=== PATIENT | female | born 1985 | race Caucasian/White ===

== ENCOUNTER 2016-12-27 23:50 | Emergency (ER) | payer MEDICAID, OTHER ==
[2016-12-28 00:19] VITALS: RESP 16; O2SAT 97
[2016-12-28] MEDS ORDERED: LORazepam 1 MG TAB PO ONE (01:30)
[2016-12-28] MEDS ORDERED: LORazepam 1 MG TAB ONE (01:41)
[2016-12-28] MEDS ORDERED: AZITHROMYCIN 250 MG TAB PO ONE (01:52)
[2016-12-28] MEDS ORDERED: ONDANSETRON DISINTEGRATING 4 MG TAB PO ONE (01:52)
[2016-12-28] MEDS ORDERED: ULIPRISTAL ACETATE 30 MG TAB PO ONE (01:52)
[2016-12-28] MEDS ORDERED: metroNIDAZOLE 500 MG TAB PO ONE (05:32)
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
[2016-12-28] MEDS ORDERED: LORAZEPAM 1 MG PREPACK#4 BTL TAKEHOME ONE (05:33)
[2016-12-28 05:51] VITALS: BP 122/72; PULSE 80; TEMP 98.1
== END 2016-12-28 05:51 | disposition home or self-care (01) ==
LOC: EEVIPCON 23:50
DX: T74.21XA Adult sexual abuse, confirmed, initial encounter (principal); N76.0 Acute vaginitis; F17.200 Nicotine dependence, unspecified, uncomplicated

== ENCOUNTER 2017-09-11 13:36 | Emergency (ER) | payer MEDICAID ==
[2017-09-11 13:45] VITALS: TEMP 98.4
--- NOTE | 2017-09-11 14:40 | EDPHY ---
H & P Stated Complaint: cough Time Seen by Provider: 09/11/17 14:06 HPI/ROS: Chief Complaint: Cough, coughing blood HPI: 32-year-old female's been having intermittent upper respiratory symptoms since May. For the last several months she has been planning a local festival is been getting very little sleep. She has had waxing waning cough with pretty persistent sore throat, nasal congestion, occasional laryngitis. This morning she cough that she had some blood immediately after waking up. Patient does admit that she had a nosebleed last night. No fevers or chills. She has seen her primary care physician and was given an MDI and cough medications. She has not been on any antibiotics. No recent travel. Has never been incarcerated. No risk factors for TB. She does smoke. ROS: 10 point Review of Systems is negative except as noted in the HPI. PMH: None Social History: Positive smoking, no alcohol, no recreational drug use Family History: non-contributory Physical Exam: Gen: Awake, Alert, No Distress HEENT: Nose: Mild dry clot of bilateral septum Eyes: PERRLA, EOMI Mouth: Moist mucosa Neck: Supple, no JVD Chest: nontender, lungs clear to auscultation Heart: S1, S2 normal, no murmur Abd: Soft, non-tender, no guarding Back: no CVA tenderness, no midline tenderness Ext: no edema, non-tender Skin: no rash Neuro: CN II-XII intact, Sensation grossly intact, Strength 5/5 in bilateral upper and lower extremities - Personal History LMP (Females 10-55): Now Current Tetanus/Diphtheria Vaccine: Unsure Current Tetanus Diphtheria and Acellular Pertussis (TDAP): Unsure - Medical/Surgical History Hx Asthma: No Hx Chronic Respiratory Disease: No Hx Diabetes: No Hx Cardiac Disease: No Hx Renal Disease: No Hx Cirrhosis: No Hx Alcoholism: No Hx HIV/AIDS: No Hx Splenectomy or Spleen Trauma: No Other PMH: none - Social History Smoking Status: Current some day smoker Constitutional: Initial Vital Signs Temperature (C) 36.9 C 09/11/17 13:43 Heart Rate 116 H 09/11/17 13:43 Respiratory Rate 24 H 09/11/17 13:43 Blood Pressure 142/121 H 09/11/17 13:43 O2 Sat (%) 97 09/11/17 13:43 O2 Delivery Mode Room Air Allergies/Adverse Reactions: No Known Allergies Allergy (Unverified 09/11/17 13:41) Home Medications: Medication Instructions Recorded Albuterol 09/11/17 Albuterol [Proventil Inhaler HFA 1 - 2 puffs IH Q4H PRN #1 mdi 09/11/17 (*)] Tessalon Pearles 09/11/17 Wellbutrin Sr 09/11/17 Medical Decision Making - Diagnostics Imaging Results: Imaging Impressions Chest X-Ray 09/11/17 13:58 Impression: Normal chest. Imaging: I viewed and interpreted images myself ED Course/Re-evaluation: Chest x-ray is negative. Patient's symptoms likely secondary to viral upper respiratory infection bronchitis. The patient the has been getting in adequate rest recently and in adequate hydration. Her coughing of blood is secondary to epistaxis. She has not have any risk factors for TB. She is afebrile. She is oxygenating well. Will discharge with follow-up as an outpatient, return for any concerns. The patient has been reassured. Departure - Departure Disposition: Home, Routine, Self-Care Clinical Impression: Viral upper respiratory illness, Epistaxis Condition: Good Instructions: Nosebleed (ED), Upper Respiratory Infection (ED) Additional Instructions: Follow up with primary care physician in 3-4 days for further evaluation. Alternate acetaminophen (1000 mg) with ibuprofen (400 mg) every 4 hours as needed for fevers, chills, aches or pain. Return to the emergency department for worsening shortness of breath, cough, chest pain, or any other concerns. Referrals: Jimena Presley MD [Doctor of Osteopathy] - As per Instructions Prescriptions: Albuterol [Proventil Inhaler HFA (*)] 1 - 2 puffs IH Q4H PRN #1 mdi PRN Reason: Wheezing
[2017-09-11 15:38] VITALS: BP 162/108; PULSE 91; RESP 20; O2SAT 93
--- NOTE | 2017-09-11 17:10 | ASMTCMCOM ---
CM Note CM Note Notes: Pt requested assistance with getting a follow-up appt at [facility] where she is an open patient with their services. This CM called [facility] ([phone]) and left two voicemails with pt's contact #s ([phone], ) and requesting that PC reach out to patient and schedule a follow-up appt for her this week or early next week. ED RN Viri relayed to patient that she should expect a call from [facility] in the next day or two. Pt also recommended to call PC if she hasn't heard from them. CM available for further assistance if needed. Date Signed: 09/11/2017 05:09 PM Electronically Signed By:Jana Coleman RN
--- NOTE | 2017-09-11 17:11 | ASDISCHSUM ---
Discharge Information Plan Status:Home with No Needs Medically Cleared to Leave: Discharge Date:09/11/2017 03:38 PM CM D/C Disposition:Home, Routine, Self-Care ADT D/C Disposition:Home, Routine, Self-Care Projected Discharge Date:09/11/2017 03:38 PM Transportation at D/C:None or Unknown Discharge Delay Reason: Follow-Up Date:09/11/2017 03:38 PM Discharge Slot: Final Diagnosis: Placement Information Patient Contact Information Contact Name:MADDI Relationship:Mother Address:[address] [facility] [facility] [address] City:[place] Alternate Phone: [facility]/Zip Code:[place] [address] Email: Financial Information Financial Class:Medicaid Primary Plan Desc:[employer] HE[employer] Primary Plan Number:[id number] Secondary Plan Desc: Secondary Plan Number: Assessment Information [facility] CM Progress Note CM Note CM Note Notes: Pt requested assistance with getting a follow-up appt at [facility] where she is an open patient with their services. This CM called [facility] ([phone]) and left two voicemails with pt's contact #s ([phone], ) and requesting that PC reach out to patient and schedule a follow-up appt for her this week or early next week. ED ARTHUR Meredith relayed to patient that she should expect a call from [facility] in the next day or two. Pt also recommended to call PC if she hasn't heard from them. CM available for further assistance if needed. Date Signed: 09/11/2017 05:09 PM Electronically Signed By:Jana Coleman RN Intervention Information
== END 2017-09-11 15:38 | disposition home or self-care (01) ==
DX: J06.9 Acute upper respiratory infection, unspecified (principal); R04.0 Epistaxis; F17.200 Nicotine dependence, unspecified, uncomplicated

== ENCOUNTER 2018-01-17 23:57 | Emergency (ER) | payer MEDICAID ==
[2018-01-18 00:09] VITALS: BP 151/80
--- NOTE | 2018-01-18 00:13 | EDPHY ---
H & P Stated Complaint: area of redness/swelling to sacrum x 3 days Time Seen by Provider: 01/18/18 00:13 HPI/ROS: HPI CHIEF COMPLAINT: Cyst on tailbone. HISTORY OF PRESENT ILLNESS: Very pleasant 32-year-old female, she presents emergency room with area pain at the superior aspect of her gluteal fold. She states she had the same exact thing happened about 3 months ago and went away on its own. She states for the past day she has had increasing pain. No fever. She is concerned that it may be a abscess or infection. She presents emergency room stating that it hurts her. Past Medical History: Denies medical history Past Surgical History: Denies surgical history Social History: Denies drugs alcohol tobacco. Family History: Noncontributory ROS REVIEW OF SYSTEMS: A comprehensive 10 point review of systems is otherwise negative aside from elements mentioned in the history of present illness. Exam Constitutional triage nursing summary reviewed, vital signs reviewed, awake/ alert. Eyes normal conjunctivae and sclera, EOMI, PERRLA. HENT normal inspection, atraumatic, moist mucus membranes, no epistaxis, neck supple/ no meningismus, no raccoon eyes. Respiratory clear to auscultation bilaterally, normal breath sounds, no respiratory distress, no wheezing. Cardiovascular rate normal, regular rhythm, no murmur, no edema, distal pulses normal. Gastrointestinal soft, non-tender, no rebound, no guarding, normal bowel sounds, no distension, no pulsatile mass. Genitourinary no CVA tenderness. Musculoskeletal no midline vertebral tenderness, full range of motion, no calf swelling, no tenderness of extremities, no meningismus, good pulses, neurovascularly intact. Top of Gluteal Fold: Redness, warmth, induration no significant fluctuance. No palpable abscess. Appears to most likely be a pilonidal cyst versus cellulitis. Skin pink, warm, & dry, no rash, skin atraumatic. Neurologic awake, alert and oriented x 3, AAOx3, moves all 4 extremities equally, motor intact, sensory intact, CN II-XII intact, normal cerebellar, normal vision, normal speech. Psychiatric normal mood/affect. Heme/Lymph/Immune no lymphadenopathy. Differential Diagnosis: Includes but is not limited to in a particular order cellulitis, pilonidal cyst, abscess Medical Decision Making: Plan for this patient will perform a bedside ultrasound to see if there is a deep pus pocket that needs to be drained. Recommend warm compresses of warm soaks 2 to 3 times a day, recommend anti- inflammatory pain medicine, addition will place on Keflex. I do recommend she has close follow-up with surgery all for her to General surgery for follow-up as this may be a pilonidal cyst in it may get worse and may need surgical drainage or excision. Discussed this at detail in length with her. Patient understands warm compresses, antibiotics, follow up with surgery. Additionally return emergency room if there is worsening symptoms Bedside ultrasound was performed and I did not see an area of pus or pocket that needs to be drained at this time appears to be area of cellulitis inflammation at the superior gluteal fold. Source: Patient - Personal History LMP (Females 10-55): Now Current Tetanus/Diphtheria Vaccine: Yes Current Tetanus Diphtheria and Acellular Pertussis (TDAP): Yes - Medical/Surgical History Hx Asthma: No Hx Chronic Respiratory Disease: No Hx Diabetes: No Hx Cardiac Disease: No Hx Renal Disease: No Hx Cirrhosis: No Hx Alcoholism: No Hx HIV/AIDS: No Hx Splenectomy or Spleen Trauma: No Other PMH: none - Social History Smoking Status: Current every day smoker Constitutional: Initial Vital Signs Temperature (C) 36.6 C 01/18/18 00:02 Heart Rate 90 01/18/18 00:02 Respiratory Rate 16 01/18/18 00:02 Blood Pressure 151/80 H 01/18/18 00:02 O2 Sat (%) 96 01/18/18 00:02 O2 Delivery Mode Room Air Allergies/Adverse Reactions: No Known Allergies Allergy (Verified 01/18/18 00:01) Home Medications: Medication Instructions Recorded Wellbutrin Sr 09/11/17 Cephalexin [Keflex] 500 mg PO Q6H #28 cap 01/18/18 Ibuprofen [Motrin (*)] 800 mg PO Q6-8PRN #30 tab 01/18/18 Departure - Departure Disposition: Home, Routine, Self-Care Clinical Impression: Pilonidal cyst Condition: Good Instructions: Pilonidal Cyst (ED) Additional Instructions: 1. Warm compresses and warm soaks 2 to 3 times a day. 2. Antibiotics as prescribed 3. Follow up with surgery. 4. Return emergency room if there is worsening symptoms questions or concerns. Referrals: Meli Sandhu NP [Primary Care Provider] - As per Instructions Aleksandr Torre MD [Medical Doctor] - As per Instructions Prescriptions: Cephalexin [Keflex] 500 mg PO Q6H #28 cap Ibuprofen [Motrin (*)] 800 mg PO Q6-8PRN #30 tab
[2018-01-18] MEDS ORDERED: CEPHALEXIN 500MG PREPACK#4 BTL TAKEHOME ONE (00:31)
[2018-01-18] MEDS ORDERED: CEPHALEXIN 500 MG CAP PO ONE (00:31)
[2018-01-18] MEDS ORDERED: IBUPROFEN 800 MG TAB PO ONE (00:31)
[2018-01-18] MEDS ORDERED: HYDROCOD/APAP 5/325 PREPACK#6 BTL TAKEHOME ONE (00:35)
== END 2018-01-18 00:45 | disposition home or self-care (01) ==
DX: L05.91 Pilonidal cyst without abscess (principal); F17.200 Nicotine dependence, unspecified, uncomplicated

== ENCOUNTER 2018-05-03 17:42 | Emergency (ER) | payer MEDICAID ==
--- NOTE | 2018-05-03 18:19 | EDPHY ---
H & P Stated Complaint: cp Time Seen by Provider: 05/03/18 18:07 HPI/ROS: CHIEF COMPLAINT: Central chest pain HISTORY OF PRESENT ILLNESS: The patient presents the ED for evaluation of central chest pain that began at 2:00 p.m. this afternoon. It reportedly woke the patient up from a nap. The patient denies any history of fall, fever or cough. She denies asymmetric calf pain or swelling. She denies prior history of PE or DVT. The patient does report her symptoms are worsened with palpation and movement. She contacted her primary care provider who recommended she come to the emergency department for evaluation. REVIEW OF SYSTEMS: A comprehensive 10 point review of systems is otherwise negative aside from elements mentioned in the history of present illness. Source: Patient - Personal History LMP (Females 10-55): 15-21 Days Ago Current Tetanus/Diphtheria Vaccine: Yes Current Tetanus Diphtheria and Acellular Pertussis (TDAP): Yes - Medical/Surgical History Hx Asthma: No Hx Chronic Respiratory Disease: No Hx Diabetes: No Hx Cardiac Disease: No Hx Renal Disease: No Hx Cirrhosis: No Hx Alcoholism: No Hx HIV/AIDS: No Hx Splenectomy or Spleen Trauma: No Other PMH: none - Social History Smoking Status: Current every day smoker - Physical Exam Exam: General Appearance: Alert, no distress Head: Atraumatic Eyes: Pupils equal, round, reactive ENT, Mouth: No hemotympanum, no oral trauma Neck: Nontender, trachea midline Respiratory: Tenderness to palpation anterior chest wall, no subcutaneous emphysema Cardiovascular: Regular rate and rhythm Abdomen: Abdomen is soft and nontender, pelvis stable Skin: No lacerations, No abrasion Back: No midline T/L/S pain Extremities: Nontender, full range of motion Neurological: A&Ox3, normal motor function, normal sensory exam Constitutional: Initial Vital Signs Temperature (C) 36.7 C 05/03/18 17:46 Heart Rate 115 H 05/03/18 17:46 Respiratory Rate 16 05/03/18 17:46 Blood Pressure 129/99 H 05/03/18 17:46 O2 Sat (%) 96 05/03/18 17:46 O2 Delivery Mode Room Air Allergies/Adverse Reactions: No Known Allergies Allergy (Verified 01/18/18 00:01) Home Medications: Medication Instructions Recorded Wellbutrin Sr 09/11/17 Medical Decision Making - Diagnostics EKG Interpretation: EKG: Complete interpretation has been separately recorded in the [facility] archive. Summary impression: Sinus rhythm, rate 95 Imaging Results: Chest x-ray PA/lateral: Images reviewed independently by myself. Impression: Negative for acute disease. ED Course/Re-evaluation: The patient presents to the ED for evaluation of central chest pain. The patient has no risk factors for cardiac disease. Her EKG demonstrates no evidence of ischemia. The patient's troponin is normal. The patient's D-dimer is negative which I feel adequately excludes pulmonary embolism in this low risk by Wells criteria patient. The patient was observed in the emergency department. I reviewed her laboratory studies and EKG. Chest x-ray demonstrates no evidence of acute disease. I do feel the patient is likely having costochondritis is presentation for symptoms today. Patient has been assured that her workup is unremarkable. Plan will be for 600 mg of ibuprofen 3 times a day for the next several days. Patient will be discharged home with customary aftercare instructions and return precautions. Differential Diagnosis: Differential diagnosis considered includes costochondritis, pulmonary embolism, pericarditis, myocarditis, pleural effusion, pneumothorax - Data Points Laboratory Results: Laboratory Results 05/03/18 18:40 05/03/18 18:40 05/03/18 05/03/18 05/03/18 18:49 18:40 18:40 WBC RBC Hgb Hct MCV MCH MCHC RDW Plt Count MPV Neut % (Auto) Lymph % (Auto) Sharkey % (Auto) Eos % (Auto) Baso % (Auto) Nucleat RBC Rel Count Absolute Neuts (auto) Absolute Lymphs (auto) Absolute Monos (auto) Absolute Eos (auto) Absolute Basos (auto) Absolute Nucleated RBC Immature Gran % Immature Gran # D-Dimer 0.32 ug/mLFEU ug/mLFEU (0.00-0.50) Sodium 139 mEq/L mEq/L (135-145) Potassium 4.5 mEq/L mEq/L (3.3-5.0) Chloride 104 mEq/L mEq/L (97-110) Carbon Dioxide 21 mEq/l L mEq/l (22-31) Anion Gap 14 mEq/L mEq/L (6-14) BUN 12 mg/dL mg/dL (7-23) Creatinine 0.6 mg/dL mg/dL (0.6-1.0) Estimated GFR > 60 Glucose 100 mg/dL mg/dL (70-100) Calcium 10.3 mg/dL mg/dL (8.5-10.4) POC Troponin I 0.00 ng/mL ng/mL (0.00-0.08) 05/03/18 18:40 WBC 11.32 10^3/uL H 10^3/uL (3.80-9.50) RBC 4.68 10^6/uL 10^6/uL (4.18-5.33) Hgb 15.7 g/dL g/dL (12.6-16.3) Hct 44.5 % % (38.0-47.0) MCV 95.1 fL fL (81.5-99.8) MCH 33.5 pg pg (27.9-34.1) MCHC 35.3 g/dL g/dL (32.4-36.7) RDW 13.1 % % (11.5-15.2) Plt Count 277 10^3/uL 10^3/uL (150-400) MPV 9.7 fL fL (8.7-11.7) Neut % (Auto) 69.1 % % (39.3-74.2) Lymph % (Auto) 21.6 % % (15.0-45.0) Sharkey % (Auto) 7.1 % % (4.5-13.0) Eos % (Auto) 1.4 % % (0.6-7.6) Baso % (Auto) 0.4 % % (0.3-1.7) Nucleat RBC Rel Count 0.0 % % (0.0-0.2) Absolute Neuts (auto) 7.83 10^3/uL H 10^3/uL (1.70-6.50) Absolute Lymphs (auto) 2.44 10^3/uL 10^3/uL (1.00-3.00) Absolute Monos (auto) 0.80 10^3/uL 10^3/uL (0.30-0.80) Absolute Eos (auto) 0.16 10^3/uL 10^3/uL (0.03-0.40) Absolute Basos (auto) 0.05 10^3/uL 10^3/uL (0.02-0.10) Absolute Nucleated RBC 0.00 10^3/uL 10^3/uL (0-0.01) Immature Gran % 0.4 % % (0.0-1.1) Immature Gran # 0.04 10^3/uL 10^3/uL (0.00-0.10) D-Dimer Sodium Potassium Chloride Carbon Dioxide Anion Gap BUN Creatinine Estimated GFR Glucose Calcium POC Troponin I Point of Care Test Results: Chemistry 05/03/18 18:49 POC Troponin I 0.00 ng/mL ng/mL (0.00-0.08) Departure - Departure Disposition: Home, Routine, Self-Care Clinical Impression: Chest wall pain, Costochondritis Condition: Good Instructions: Costochondritis (ED) Additional Instructions: 1. Take Ibuprofen or Motrin 600 mg by mouth three times a day. 2. Please return to the ED for markedly worsening symptoms, difficulty breathing, fever, cough or other concerns. 3. The testing done in the emergency department today demonstrates no evidence of a heart attack, blood clot, pneumonia or collapsed lung. Referrals: Meli Sandhu NP [Primary Care Provider] - As per Instructions
--- NOTE | 2018-05-03 18:21 | CPEKG ---
Test Reason : OPEN Blood Pressure : / mmHG Vent. Rate : 095 BPM Atrial Rate : 096 BPM P-R Int : 139 ms QRS Dur : 083 ms QT Int : 344 ms P-R-T Axes : 040 038 025 degrees QTc Int : 433 ms Sinus rhythm Confirmed by Christiano Miller ([id number]) on 05/03/2018 6:21:02 PM Referred By: Confirmed By:Christiano Miller
[2018-05-03 18:53] LABS: PLATELET COUNT 277 10^3/uL (150-400)
[2018-05-03] MEDS ORDERED: IBUPROFEN 600 MG TAB PO ONE ×2 (19:39→19:40)
[2018-05-03 19:42] VITALS: BP 130/89
== END 2018-05-03 19:41 | disposition home or self-care (01) ==
DX: R07.89 Other chest pain (principal); M94.0 Chondrocostal junction syndrome [Tietze]; F17.200 Nicotine dependence, unspecified, uncomplicated
CPT/HCPCS: 84484-PO

== ENCOUNTER 2018-05-07 22:37 | Emergency (ER) | payer MEDICAID ==
[2018-05-07 22:43] VITALS: BP 128/99
--- NOTE | 2018-05-07 22:51 | EDPHY ---
H & P Stated Complaint: R ankle injury "heard a crack" Time Seen by Provider: 05/07/18 22:48 HPI/ROS: HPI: The patient presents with right ankle injury which occurred just prior to arrival. She was walking down a flight of stairs and when she reached the base of the stairs there was a wet surface that she tripped and fell on. Her ankle inverted. She developed acute onset of severe achy pain of her medial ankle which is moderate in severity and worse when she walks. She did hear a cracking noise during her injury. She does not have any numbness or tingling of her foot or ankle. She does not have any cuts or lacerations. She does report that she has suffered from frequent ankle sprains though has not had 1 for several years. She does not have a treating orthopedist. She was seen for costochondritis on May 03 and prescribed ibuprofen. REVIEW OF SYSTEMS 10 systems were reviewed and negative with the exception of the elements mentioned in the history of present illness. PMHx: Recent diagnosis of costochondritis, takes Wellbutrin for depression, followed at [facility], smoker TRAUMA PHYSICAL General Appearance: Alert, no distress Head: Atraumatic Eyes: Pupils equal, round, reactive ENT, Mouth: No hemotypanium, no oral trauma Neck: Non- tender, trachea midline Respiratory: No chest wall tenderness, no subcutaneous air, lungs clear bilaterally Cardiovascular: Regular rate and rhythm Abdomen: Abdomen is soft and non-tender, pelvis stable Skin: No lacerations, No abrasion Back: No midline T/L/S pain Extremities: Right ankle with tenderness medially with limited range of motion of the joint secondary to pain, there is edema of the ankle, there is full range of motion of toes with sensation intact to light touch and 2+ DP pulses Neurological: A&Ox3, GCS=15,normal motor function with 5/5 strength in all 4 extremities, normal sensory exam Source: Patient, Old records Exam Limitations: No limitations - Personal History Current Tetanus/Diphtheria Vaccine: Yes Current Tetanus Diphtheria and Acellular Pertussis (TDAP): Yes - Medical/Surgical History Hx Asthma: No Hx Chronic Respiratory Disease: No Hx Diabetes: No Hx Cardiac Disease: No Hx Renal Disease: No Hx Cirrhosis: No Hx Alcoholism: No Hx HIV/AIDS: No Hx Splenectomy or Spleen Trauma: No Other PMH: none - Social History Smoking Status: Current every day smoker Constitutional: Initial Vital Signs Temperature (C) 37.3 C 05/07/18 22:41 Heart Rate 109 H 05/07/18 22:41 Respiratory Rate 20 05/07/18 22:41 Blood Pressure 128/99 H 05/07/18 22:41 O2 Sat (%) 96 05/07/18 22:41 O2 Delivery Mode Room Air Allergies/Adverse Reactions: No Known Allergies Allergy (Verified 05/07/18 22:40) Home Medications: Medication Instructions Recorded Wellbutrin Sr 09/11/17 Medical Decision Making - Diagnostics Imaging Results: Imaging Impressions Ankle X-Ray 05/07/18 22:45 Impression: 1. Acute minimally displaced medial malleolar fracture. No derangement of the ankle mortise. 2. Suspect old chip fracture off the posterior distal tibia. Imaging: Discussed imaging studies w/ call worker Radiologist, I viewed and interpreted images myself Procedures: SPLINT Procedure: Splint placement. A ortho glass posterior short-leg with sugar-tong splint was applied to the right ankle by the tech. After application of the splint I returned and re- examined the patient. The splint was adequately immobilizing the joint and distal to the splint the patient's circulation and sensation was intact. Differential Diagnosis: 32-year-old female with obesity, recent diagnosis of costochondritis presents with a slip and fall just prior to arrival with right ankle pain and swelling. She is neurovascularly intact. She does not have any breaks in her skin. X- rays demonstrate medial malleolar fracture with possible old avulsion fracture of the posterior malleolus. I will place her in a posterior short-leg sugar- tong splint. We will train her on crutches and to be nonweightbearing. I will start her on Tylenol for pain. I have advised her to follow up with Orthopedics in the next several days for an appointment in 7-10 days. Differential diagnosis includes ankle fracture, ankle sprain, ankle dislocation. - Data Points Medications Given: Discontinued Medications Ibuprofen (Motrin) 800 mg PO EDNOW ONE Stop: 05/07/18 23:23 Last Admin: 05/07/18 23:24 Dose: 800 mg Departure - Departure Disposition: Home, Routine, Self-Care Clinical Impression: Closed right ankle fracture Qualifiers: Encounter type: initial encounter Qualified Code(s): S80.093M - Other fracture of right lower leg, initial encounter for closed fracture Condition: Good Instructions: Ankle Fracture (ED), Splint Care (ED) Additional Instructions: I recommend that you rest for much of the day tomorrow and elevate your leg. You should use ice for 20 min at a time multiple times a day. You should take Tylenol 1000 mg every 6 hr for pain. If this is not helping her pain I will give you a few tabs of [place] to try that you could take as well. Please call the orthopedic doctor Dr. Barron tomorrow to arrange for a follow-up appointment in about a week. Return to the emergency department if your worse in any way. Referrals: Meli Sandhu NP [Primary Care Provider] - As per Instructions Bong Barron MD [Medical Doctor] - As per Instructions
[2018-05-07] MEDS ORDERED: IBUPROFEN 800 MG TAB PO ONE (23:22)
[2018-05-07] MEDS ORDERED: HYDROCOD/APAP 5/325 PREPACK#6 BTL TAKEHOME ONE (23:36)
== END 2018-05-08 00:29 | disposition home or self-care (01) ==
PROC: 2W3QX1Z Immobilization of Right Lower Leg using Splint (ICD-10-PCS; principal; 2018-05-07)
DX: S82.51XA Displaced fracture of medial malleolus of right tibia, initial encounter for closed fracture (principal); W10.8XXA Fall (on) (from) other stairs and steps, initial encounter; E66.9 Obesity, unspecified